=== PATIENT | female | born 1985 | race Caucasian/White ===

== ENCOUNTER 2017-01-03 00:47 | Inpatient (IN) | payer MEDICAID ==
[~2017-01-03] VITALS: Ht 162.6 cm; Wt 97.0 kg
--- NOTE | ~2017-01-03 | OR ---
PATIENT'S NAME: UTE REYNOLDS [facility] AGE: 31 Y [address] ROOM: [place] [address] LOCATION: [facility] ADMIT DATE: 01/03/2017 OR/Procedure Report DISCHARGE DATE: FAMILY PHYSICIAN: Mónica Jarrett MD ATTENDING PHYSICIAN: IVORY TURNER SURGEON: Norma Quiros MD PICKING MACHINE OPERATOR: Ivory Turner MD. Dr. Turner's assistance was required due to the complexity of the case as well as in compliance with [facility] guidelines. DATE OF PROCEDURE: 01/03/2017 PREOPERATIVE DIAGNOSES: Term intrauterine , prior section, labor, and gestational diabetes. POSTOPERATIVE DIAGNOSES: Term intrauterine , prior section, labor, and gestational diabetes. PROCEDURE: Repeat low transverse section. ANESTHESIA: Spinal. ESTIMATED BLOOD LOSS: 500 mL. CLINICAL INDICATIONS: Ute Reynolds is a 31-year-old female, 3, para 2, with 2 prior sections at term. She would present in labor, necessitated repeat section. Additionally, she had gestational diabetes. FINDINGS: Delivery of viable 6 pounds 1 ounce male infant in a vertex presentation. scores of 8 at one minute, 9 at five minutes. umbilical, arterial cord blood gas is pending at the time of this dictation. TECHNIQUE OF PROCEDURE: The patient was taken to the operating room, given spinal anesthesia with good results, placed in a supine position with right hip roll, prepped and draped in the usual fashion. Previous Pfannenstiel scars were excised sharply. Subcutaneous tissue was dissected sharply. Linea alba dissected free of the rectus muscles. Rectus muscles and peritoneum were incised vertically in the midline. That bladder flap was created. Myometrium was incised with a scalpel. Endometrial cavity was entered bluntly. Uterine incision was performed bluntly. At this point in time, there was rapid and easy delivery of viable 6 pounds 1 ounce male infant in a vertex presentation. The umbilical cord was doubly clamped, the intervening segments were cut. The was handed off to the awaiting nursing services. Also, moderate meconium-stained amniotic fluid was noted at the time of the amniotomy. Placenta delivered spontaneously intact with 3 vessels. Exploration of the PATIENT'S NAME: UTE REYNOLDS [facility] AGE: 31 Y [address] ROOM: [place] [address] LOCATION: [facility] ADMIT DATE: 01/03/2017 OR/Procedure Report DISCHARGE DATE: FAMILY PHYSICIAN: Mónica Jarrett MD ATTENDING PHYSICIAN: IVORY TURNER uterine cavity noted no residual placental or amniotic membranes. Uterine incision was closed with a running continually locking stitch of 0 chromic suture followed by a second imbricating layer consisting of running continuous stitch of 0 chromic suture. Good hemostasis was obtained. Bladder flap was closed with running continuous stitch of 2-0 Vicryl suture. Abdomen was inspected. Any blood or blood clots were retrieved. Tubes and ovaries were normal bilaterally. Abdominal peritoneum was closed with running continuous stitch of 2-0 Vicryl suture. Fascial incision was closed with 2-0 running continuous stitches of 0 Vicryl suture tied in the midline. Subcutaneous tissue reapproximated using running continuous stitch of 2-0 Vicryl suture. Skin was closed with running continuous subcuticular stitch of 4-0 Vicryl suture. Sponge, needle, and instrument counts were correct. The patient tolerated the procedure well and was taken to the recovery room in good condition. NORMA QUIROS MD DHW/modl /[id number] d: 01/03/1731 t: 01/09/17 0739, OPERATIVE SUMMARY
--- NOTE | ~2017-01-03 | DS ---
PATIENT'S NAME: DANNY CRAVEN [facility] AGE: 31 Y [address] ROOM: [place] [address] LOCATION: [facility] ADMIT DATE: 01/03/2017 Discharge Summary DISCHARGE DATE: 01/07/2017 FAMILY PHYSICIAN: Mónica Jarrett MD [facility]RSE: The patient is a 31-year-old female at term with prior section. She would present in labor. The patient also has a history of gestational diabetes with a prior section in labor. We proceeded to do a repeat low transverse section on 01/03/2017. The patient's blood sugars responded well. She had some mild hypertension that did not require treatment and was subsequently discharged in good condition. DISCHARGE MEDICATIONS: 1. Motrin. 2. Percocet. DISCHARGE INSTRUCTIONS: Please see discharge instruction sheet for specifics regarding these instructions. The patient is to return in 2 weeks for postoperative check. MD NADINE CASAS/meera /[id number] d: t: 01/10/17 0755, DISCHARGE SUMMARY
[2017-01-03] MEDS ORDERED: PRENATAL 1+1)(P1 TAB PO (02:08)
[2017-01-03 03:03] LABS: BASOPHIL % 0.2 %; EOSINOPHIL % 0.2 %; HEMATOCRIT 39.4 % (33.0-46.0); HEMOGLOBIN 13.8 g/dL (11.0-15.0); IMMATURE GRANULOCYTE # 0.1 K/uL (0.0-0.3); IMMATURE GRANULOCYTE % 0.7 %; LYMPHOCYTE % 14.5 %; MCH 33.3 pg (27.0-34.0); MCV 95.2 fl (83.0-98.0); MONOCYTE # 0.6 K/uL (0.0-1.0); MONOCYTE % 4.7 %; MPV 11.6 fl (9.4-12.4); NEUTROPHIL # (ANC) 10.8 K/uL (1.8-7.8); NEUTROPHIL % 79.7 %; NRBC % 0 /100WBC (0-0.00); PLATELET COUNT 262 K/uL (150-450); RBC 4.14 M/uL (3.50-5.00); RDW-CV 12.8 % (11.9-14.6); WBC 13.5 K/uL (4.0-11.0)
[2017-01-03 03:31] LABS: BILIRUBIN URINE NEGATIVE (NEGATIVE); BLOOD URINE 250 /UL (NEGATIVE); COLOR URINE YELLOW (YELLOW); GLUCOSE URINE NEGATIVE (NEGATIVE); KETONE URINE 5 mg/dL (NEGATIVE); LEUKOCYTES URINE 500 /UL (NEGATIVE); NITRITE URINE NEGATIVE (NEGATIVE); PROTEIN URINE 15 mg/dL (NEGATIVE); TURBIDITY URINE 1+ (CLEAR); UROBILINOGEN URINE NORMAL (NORMAL)
[2017-01-03 03:34] LABS: ALBUMIN 2.6 gm/dL (3.5-5.0); ALK PHOS 199 IU/L (33-138); ALT 17 IU/L (12-78); ANION GAP 15.1 (10.0-19.0); AST 13 IU/L (10-40); BLOOD UREA NITROGEN 10 mg/dL (6-24); CALCIUM 8.6 mg/dL (8.5-10.5); CHLORIDE 108 mMol/L (96-110); CO2 19 mMol/L (22-32); CREATININE 0.7 mg/dL (0.5-1.1); POTASSIUM 4.1 mMol/L (3.7-5.1); SODIUM 138 mMol/L (135-145); TOTAL BILIRUBIN 0.3 mg/dL (0.0-1.5); TOTAL PROTEIN 6.9 g/dL (6.0-8.4)
[2017-01-03 03:38] LABS: BACTERIA URINE MANY (NEGATIVE)
[2017-01-03 05:52] LABS: PCO2 54 mmHg (35-45); PO2 13 mmHg (80-90)
[2017-01-03 05:53] LABS: BICARBONATE 25.5 mmol/L (18.0-23.0)
[2017-01-04 06:05] LABS: BASOPHIL % 0.3 %; EOSINOPHIL # 0.1 K/uL (0.0-0.5); EOSINOPHIL % 0.7 %; HEMATOCRIT 33.1 % (33.0-46.0); HEMOGLOBIN 11.2 g/dL (11.0-15.0); IMMATURE GRANULOCYTE % 0.4 %; LYMPHOCYTE # 1.8 K/uL (0.8-4.0); LYMPHOCYTE % 18.4 %; MCH 32.8 pg (27.0-34.0); MCHC 33.8 gm/dL (32.0-36.5); MCV 97.1 fl (83.0-98.0); MONOCYTE # 0.6 K/uL (0.0-1.0); MONOCYTE % 5.5 %; MPV 11.4 fl (9.4-12.4); NEUTROPHIL # (ANC) 7.4 K/uL (1.8-7.8); NEUTROPHIL % 74.7 %; NRBC % 0 /100WBC (0-0.00); RBC 3.41 M/uL (3.50-5.00); RDW-CV 13.2 % (11.9-14.6)
[2017-01-04 06:09] LABS: PLATELET COUNT 180 K/uL (150-450)
[2017-01-07] MEDS ORDERED: MOTRIN800 MG PO (12:53)
[2017-01-07] MEDS ORDERED: PERCOCET 5-3251 EACH PO (12:54)
== END 2017-01-07 20:00 | disposition disaster alternative care site (69) | DRG 766 ==
LOC: GOBS 00:47 → GOBM 00:47 → GOBS 00:48 → GOBM 00:49 → GOBS 04:02 → EDSTATUS 01-07 06:00 → GOBS 01-07 20:00
PROVIDERS: Obstetrics & Gynecology; ADMIT Obstetrics & Gynecology
PROC: 4A1HX4Z Monitoring of Products of Conception, Cardiac Electrical Activity, External Approach (ICD-10-PCS; principal; 2017-01-03)
PROC: 10D00Z1 Extraction of Products of Conception, Low, Open Approach (ICD-10-PCS; principal; 2017-01-03)
DX: O24.429 Gestational diabetes mellitus in childbirth, unspecified control (principal); O16.4 Unspecified maternal hypertension, complicating childbirth; N85.8 Other specified noninflammatory disorders of uterus; O34.211 Maternal care for low transverse scar from previous cesarean delivery; Z3A.38 38 weeks gestation of pregnancy; Z37.0 Single live birth
CPT/HCPCS: J0295; J1885; J2001; J2175; J2270; J7040; J7120